=== PATIENT | female | born 1955 | race Two or more races ===

== ENCOUNTER 2019-05-20 13:25 | Emergency (ER) | payer OTHER, MEDICAID ==
[~2019-05-20] VITALS: Ht 165.1 cm; Wt 122.5 kg
[2019-05-20 13:35] VITALS: BP 141/71
== END 2019-05-20 15:08 | disposition left against medical advice (07) ==
LOC: ER 13:34
DX: R51 Headache (principal); Z53.21 Procedure and treatment not carried out due to patient leaving prior to being seen by health care provider

== ENCOUNTER 2021-04-15 08:07 | Emergency (ER) | payer MEDICARE, MEDICAID ==
[~2021-04-15] VITALS: Ht 165.1 cm; Wt 115.7 kg
[2021-04-15 09:05] VITALS: BP 153/84
== END 2021-04-15 09:46 | disposition home or self-care (01) ==
LOC: ER 08:07
DX: L30.4 Erythema intertrigo (principal); E78.5 Hyperlipidemia, unspecified; Z90.49 Acquired absence of other specified parts of digestive tract

== ENCOUNTER 2021-05-01 03:35 | Emergency (ER) | payer MEDICARE, MEDICAID ==
[~2021-05-01] VITALS: Ht 165.1 cm; Wt 115.7 kg
[2021-05-01 04:40] VITALS: BP 144/94
== END 2021-05-01 07:09 | disposition home or self-care (01) ==
LOC: ER 03:35
DX: L20.9 Atopic dermatitis, unspecified (principal); E11.9 Type 2 diabetes mellitus without complications; E78.5 Hyperlipidemia, unspecified; Z86.2 Personal history of diseases of the blood and blood-forming organs and certain disorders involving the immune mechanism; Z86.718 Personal history of other venous thrombosis and embolism